=== PATIENT | male | born 1980 | race Caucasian/White ===

== ENCOUNTER 2017-04-09 22:29 | Emergency (ER) | payer SELFPAY ==
[2017-04-10 00:42] VITALS: BP 144/98
[2017-04-10 01:42] LABS: Basophils % (Auto) 0.3 % (0.0-1.8); Eosinophils # (Auto) 0.1 K/mm3 (0.0-0.4); Eosinophils % (Auto) 0.5 % (0.0-4.3); Hematocrit 48.4 % (35.5-45.6); Hemoglobin 15.6 gm/dl (11.8-15.2); Lymphocytes # (Auto) 0.5 K/mm3 (1.2-5.4); Lymphocytes % (Auto) 4.6 % (13.4-35.0); Mean Corpuscular HGB Conc 32 % (32-34); Mean Corpuscular Volume 76 fl (84-94); Monocytes # (Auto) 1.2 K/mm3 (0.0-0.8); Monocytes % (Auto) 10.5 % (0.0-7.3); Platelet Count 263 K/mm3 (140-440); Red Blood Count 6.34 M/mm3 (3.65-5.03); Red Cell Distribution Width 15.9 % (13.2-15.2)
[2017-04-10 01:48] LABS: Mean Corpuscular Hemoglobin 25 pg (28-32)
[2017-04-10 02:00] LABS: Albumin 4.2 g/dL (3.9-5); BUN/Creatinine Ratio 8; Blood Urea Nitrogen 10 mg/dL (9-20); Calcium 8.9 mg/dL (8.4-10.2); Hemolysis Index 98
[2017-04-10 02:03] LABS: Alanine Aminotransferase 25 units/L (7-56)
== END 2017-04-10 00:46 | disposition left against medical advice (07) ==
LOC: ED 22:29
DX: R11.0 Nausea (principal); Z53.21 Procedure and treatment not carried out due to patient leaving prior to being seen by health care provider
CPT/HCPCS: 36415; 80053; 85025

== ENCOUNTER 2018-04-04 02:07 | Emergency (ER) | payer OTHER, BC ==
[2018-04-04] MEDS ORDERED: NORCO 5/325 PO STA (05:44)
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
[2018-04-04 06:41] VITALS: BP 156/105
== END 2018-04-04 06:43 | disposition home or self-care (01) ==
LOC: ED 02:07
DX: S16.1XXA Strain of muscle, fascia and tendon at neck level, initial encounter (principal); I10 Essential (primary) hypertension; V89.2XXA Person injured in unspecified motor-vehicle accident, traffic, initial encounter; Y93.89 Activity, other specified; Y92.488 Other paved roadways as the place of occurrence of the external cause; Y99.8 Other external cause status
CPT/HCPCS: 99282